=== PATIENT | female | born 1985 | race Caucasian/White ===

== ENCOUNTER → 2017-12-08 15:14 | Outpatient (CLI) | payer OTHER, SELFPAY ==
--- NOTE | 2017-12-08 | DI.US.S_ITS ---
PROCEDURE: US OB >= 14 WEEKS FETUS INDICATIONS: 20 WEEK ANATOMICAL SURVEY OUTSIDE/PRIOR DATING DATA: Last menstrual period (LMP): 07/16/17. LMP-based estimated date of delivery (SWAPNA): 04/22/18. First dating scan (date and location): 09/11/17. Estimated date of delivery (SWAPNA) from first dating scan: 04/19/18. TECHNIQUE: Real-time scanning was performed of the fetus, with image documentation and biometric measurements. Endovaginal scanning: No COMPARISON: formerly [facility], OB COMPLETE LESS THAN 14 WKS, 09/11/2017, 13:10. FINDINGS: General: A single living intrauterine gestation is present. Presentation: Vertex. Placenta: Placental position is anterior, without previa. Amniotic fluid index: 14.8 cm, normal range is 5-24 cm. heart rate: 123 beats per minute. Maternal cervical canal: 3.8 cm long. biometrics: Biparietal diameter: 21 weeks Head circumference: 21 weeks Abdominal circumference: 21 weeks 3 days Femur length: 21 weeks 3 days Estimated gestational age from initial scan: 21 weeks 1 day Composite gestational age from present scan: 21 weeks 2 days Estimated weight and percentile: 421 g; the 59th percentile Measurement variability for biometric dating: +/- 7 days from 14 weeks to 15 weeks 6 days gestation, +/- 10 days from 16 weeks to 21 weeks 6 days gestation, +/- 2 weeks from 22 weeks to 27 weeks 6 days gestation, +/- 3 weeks for 28 weeks gestation or later. weight reference: 4500 g or EFW >90/95% is considered macrosomia or large for gestational age. EFW <10% is small for gestational age. EFW 5% or less is considered intra-uterine growth restriction. Anatomic survey: Neuro: Ventricles are non-dilated at less than 10 mm. Cisterna magna is normal at 3-11 mm. Cerebellum is normal in size and morphology. Nuchal skin fold: Normal at less than 6 mm between 14-21 weeks gestational age. Face: Nose and lips, facial profile are normal. Spine: No evidence for spina bifida. Heart: 4-chambered heart is present, with normal ventricular outflow tracts. Diaphragm: Diaphragm is intact. Stomach: Left-sided stomach is present. Kidneys: No hydronephrosis. Normal is less than 5 mm in 2nd trimester, less than 7 mm in 3rd trimester. Cord: 3-vessel cord has orthotopic insertion. Bladder: Normal in size. Extremities: All 4 extremities identified. IMPRESSION: 1. Single living IUP redemonstrated and interval growth is normal. 2. Normal anatomic survey. Dictated by: Tate Cool [facility] Interpreted: Manas Chaudhry MD on 12/09/2017 at 9:01 Approved by: Manas Chaudhry M.D. on 12/09/2017 at 14:18
== END ==
PROVIDERS: PCP Midwife; Visit Provider Midwife
DX: Z34.92 Encounter for supervision of normal pregnancy, unspecified, second trimester (principal); Z3A.21 21 weeks gestation of pregnancy
CPT/HCPCS: 76811

== ENCOUNTER → 2019-09-12 15:04 | Outpatient (CLI) | payer OTHER, SELFPAY ==
--- NOTE | 2019-09-12 | DI.US.S_ITS ---
PROCEDURE: US OB <= 14 WEEKS FETUS INDICATIONS: SIZE AND DATING OUTSIDE/PRIOR DATING DATA: First dating scan (date and location): 09/12/19. Estimated date of delivery (SWAPNA) from first dating scan: 05/02/20. TECHNIQUE: Real-time scanning was performed of the fetus and maternal pelvic organs, with image documentation. Endovaginal scanning was also performed to better visualize the fetus and maternal ovaries. COMPARISON: None. FINDINGS: Embryo: [place]-rump length measures 8 mm corresponding to 6 weeks 5 days. Heart rate measures 136 beats per minute. Measurement variability in dating: +/- 4 weeks by LMP, +/- 7 days by mean sac diameter (use before 6 weeks gestation if crown-rump length not able to be measured), +/- 5 days by crown-rump length (up to 8 weeks 6 days gestation), +/- 7 days by crown-rump length (up to 13 weeks 6 days gestation). Maternal organs: Ovaries within normal limits. Limited images through the kidneys demonstrate no hydronephrosis. Lower uterine segment [place] contraction noted. IMPRESSION: 6 week 5 day del real intrauterine gestation. Dictated by: Tate Cool [facility] Interpreted: Tray Armenta MD on 09/12/2019 at 16:57 Approved by: Tray Armenta M.D. on 09/15/2019 at 16:46
== END ==
PROVIDERS: PCP Midwife; Referring Provider Midwife; Visit Provider Midwife
DX: Z36.87 Encounter for antenatal screening for uncertain dates (principal); Z3A.01 Less than 8 weeks gestation of pregnancy
CPT/HCPCS: 76801

== ENCOUNTER → 2019-12-14 15:46 | Outpatient (CLI) | payer OTHER, SELFPAY ==
--- NOTE | 2019-12-14 | DI.US.S_ITS ---
PROCEDURE: US OB >= 14 WEEKS FETUS INDICATIONS: ANATOMICAL SURVEY OUTSIDE/PRIOR DATING DATA: Last menstrual period (LMP): Not available. LMP-based estimated date of delivery (SWAPNA): Not available. First dating scan (date and location): 09/12/19. Estimated date of delivery (SWAPNA) from first dating scan: 05/02/20. TECHNIQUE: Real-time scanning was performed of the fetus, with image documentation and biometric measurements. Endovaginal scanning: No needed for this examination. COMPARISON: [facility], OB >= 14 WEEKS FETUS, 12/08/2017, 15:40. FINDINGS: General: A single living intrauterine gestation is present. Presentation: Vertex. Placenta: Placental position is anterior, without previa. Amniotic fluid index: 11.6 cm, normal range is 5-24 cm. heart rate: 152 beats per minute. Maternal cervical canal: 5.9 cm long. Normal lower limit is 2.5 cm. biometrics: Biparietal diameter: 4.7 cm, 20 weeks 1 day Head circumference: 17.6 cm, 20 weeks 0 days Abdominal circumference: 15.3 cm, 20 weeks 4 days Femur length: 3.2 cm, 20 weeks 0 days Estimated gestational age from initial scan: 20 weeks 0 days Composite gestational age from present scan: 20 weeks 1 day Estimated weight and percentile: 343 g, 61st percentile Measurement variability for biometric dating: +/- 7 days from 14 weeks to 15 weeks 6 days gestation, +/- 10 days from 16 weeks to 21 weeks 6 days gestation, +/- 2 weeks from 22 weeks to 27 weeks 6 days gestation, +/- 3 weeks for 28 weeks gestation or later. weight reference: 4500 g or EFW >90/95% is considered macrosomia or large for gestational age. EFW <10% is small for gestational age. EFW 5% or less is considered intra-uterine growth restriction. Anatomic survey: Neuro: Ventricles are non-dilated at less than 10 mm. Cisterna magna is normal at 3-11 mm. Cerebellum is normal in size and morphology. Nuchal skin fold: Normal at less than 6 mm between 14-21 weeks gestational age. Face: Nose and lips, facial profile are normal. Spine: No evidence for spina bifida. Heart: 4-chambered heart is present, with normal ventricular outflow tracts. Diaphragm: Diaphragm is intact. Stomach: Left-sided stomach is present. Kidneys: No hydronephrosis. Normal is less than 5 mm in 2nd trimester, less than 7 mm in 3rd trimester. Cord: 3-vessel cord has orthotopic insertion. Bladder: Normal in size. Extremities: All 4 extremities identified. IMPRESSION: Single living intrauterine gestation with appropriate interval growth and no anomaly. Vertex presentation, normal amniotic fluid volume, anterior placenta. Dictated by: Manas Chaudhry M.D. on 12/14/2019 at 16:39 Approved by: Manas Chaudhry M.D. on 12/14/2019 at 16:43
== END ==
PROVIDERS: PCP Midwife; Referring Provider Midwife; Visit Provider Midwife
DX: Z36.89 Encounter for other specified antenatal screening (principal); Z3A.20 20 weeks gestation of pregnancy
CPT/HCPCS: 76811

== ENCOUNTER → 2023-10-05 09:15 | Outpatient (CLI) | payer OTHER, SELFPAY ==
[2023-10-05 10:42] LABS: Hemoglobin 12.3 g/dL (12.0-16.0); Mean Corpuscular HGB Conc 33.1 % (30-36); Mean Corpuscular Hemoglobin 29.1 PG (26-34); Mean Corpuscular Volume 87.8 fL (80-100); Platelet Count 233 X10^3/uL (150-400); Red Blood Cell Count 4.21 X10^6/uL (4.0-5.2); Red Cell Distribution Width 13.4 % (11.6-14.8); White Blood Cell Count 5.5 X10^3/uL (4.5-11.0)
[2023-10-05 11:08] LABS: Alanine Aminotransferase 13 IU/L (<35); Albumin 4.3 g/dL (3.5-5.0); Albumin Globulin Ratio 1.5 (1.0-2.8); Alkaline Phosphatase 88 U/L (38-126); Aspartate Aminotransferase 20 IU/L (14-36); BUN Creatinine Ratio 13.6 (6-22); Bilirubin Total 0.4 mg/dL (0.2-1.3); Blood Urea Nitrogen 11 mg/dL (7-17); Calcium 9.5 mg/dL (8.4-10.2); Carbon Dioxide 30 mmol/L (22-32); Chloride 105 mmol/L (98-107); Cholesterol 142 mg/dL (140-199); Estimated Glomerular Filt Rate > 60 mL/min (>60); Globulin 2.9 g/dL (1.7-4.1); Glucose 82 mg/dL (70-100); HDL Cholesterol 51 mg/dL (40-60); HEMOLYSIS < 15 (0-50); LDL Cholesterol Calculated 75 mg/dL (<100); Potassium 4.2 mmol/L (3.4-5.1); Sodium 142 mmol/L (137-145); Total Protein 7.2 g/dL (6.3-8.2); Triglycerides 78 mg/dL (35-150)
[2023-10-05 11:17] LABS: Follicle Stimulating Hormone 3.61 mIU/mL
[2023-10-06 05:27] LABS: HSV 2 IGG AB 4.36 index (0.00-0.90)
[2023-10-09 05:32] LABS: Free T4, Direct Thyroxine 0.95 ng/dL (0.78-2.19)
[2023-10-09 05:46] LABS: Thyroid Stimulating Hormone 2.48 uIU/mL (0.47-4.68)
== END ==
LOC: LAB 09:16
PROVIDERS: PCP Registered Nurse Diabetes Educator; Referring Provider Registered Nurse Diabetes Educator; Visit Provider Registered Nurse Diabetes Educator
DX: R53.83 Other fatigue (principal); R68.82 Decreased libido
CPT/HCPCS: 36415; 80053; 80061; 83001; 84439; 84443; 85027; 86695; 86696

== ENCOUNTER → 2024-07-13 10:56 | Outpatient (CLI) | payer OTHER, SELFPAY ==
[2024-07-13 12:00] LABS: Add Manual Diff / Slide Review NO; Basophils Absolute Auto 0 /uL (0-100); Basophils Percent Auto 0.7 % (0-2); Eosinophils Absolute Auto 100 /uL (0-450); Eosinophils Percent Auto 1.8 % (2-4); Hematocrit 37.7 % (36-46); Hemoglobin 12.4 g/dL (12.0-16.0); Lymphocytes Absolute Auto 1900 /uL (1100-4500); Mean Corpuscular HGB Conc 32.9 % (30-36); Mean Corpuscular Volume 85.3 fL (80-100); Monocytes Absolute Auto 300 /uL (0-900); Monocytes Percent Auto 5.8 % (3-14); Neutrophils Absolute Auto 2200 /uL (1500-7000); Neutrophils Percent Auto 48.7 % (50-75); Platelet Count 262 X10^3/uL (150-400); Red Blood Cell Count 4.42 X10^6/uL (4.0-5.2); Red Cell Distribution Width 13.5 % (11.6-14.8); White Blood Cell Count 4.4 X10^3/uL (4.5-11.0)
[2024-07-13 12:17] LABS: HEMOLYSIS < 15 (0-50); Iron 137 ug/dL (37-170)
[2024-07-13 12:20] LABS: Alanine Aminotransferase 15 IU/L (<35); Albumin 4.8 g/dL (3.5-5.0); Albumin Globulin Ratio 1.5 (1.0-2.8); Alkaline Phosphatase 73 U/L (38-126); Aspartate Aminotransferase 26 IU/L (14-36); BUN Creatinine Ratio 16.4 (6-22); Bilirubin Total 0.7 mg/dL (0.2-1.3); Blood Urea Nitrogen 12 mg/dL (7-17); Calcium 9.2 mg/dL (8.4-10.2); Carbon Dioxide 27 mmol/L (22-32); Chloride 105 mmol/L (98-107); Estimated Glomerular Filt Rate > 60 mL/min (>60); Globulin 3.3 g/dL (1.7-4.1); Glucose 79 mg/dL (70-100); HEMOLYSIS < 15 (0-50); Potassium 4.5 mmol/L (3.4-5.1); Sodium 140 mmol/L (137-145); Total Protein 8.1 g/dL (6.3-8.2)
[2024-07-13 12:31] LABS: Percent Iron Saturation 50 % (15-50); Total Iron Binding Capacity 273 ug/dL (265-497); Transferrin 240 mg/dL (206-381)
[2024-07-13 12:49] LABS: TSH w/ Reflex to FT4 2.45 uIU/mL (0.47-4.68)
[2024-07-13 13:08] LABS: Vitamin B12 > 1000 pg/mL (239-931)
== END ==
LOC: LAB 10:57
PROVIDERS: Physician Assistant; PCP Registered Nurse Diabetes Educator; Referring Provider Registered Nurse Diabetes Educator; Visit Provider Registered Nurse Diabetes Educator
DX: R53.83 Other fatigue (principal); Z86.16 Personal history of COVID-19
CPT/HCPCS: 36415; 80053; 82607; 83540; 83550; 84443; 85025

== ENCOUNTER → 2025-03-20 15:04 | Outpatient (CLI) | payer OTHER, SELFPAY ==
[2025-03-20 15:30] LABS: Add Manual Diff / Slide Review NO; Hematocrit 36.9 % (36-46); Hemoglobin 12.4 g/dL (12.0-16.0); Lymphocytes Absolute Auto 2200 /uL (1100-4500); Mean Corpuscular HGB Conc 33.5 % (30-36); Mean Corpuscular Hemoglobin 27.7 PG (26-34); Mean Corpuscular Volume 82.6 fL (80-100); Platelet Count 290 X10^3/uL (150-400)
[2025-03-20 15:55] LABS: Alanine Aminotransferase 11 IU/L (<35); Albumin 4.7 g/dL (3.5-5.0); Albumin Globulin Ratio 1.5 (1.0-2.8); Alkaline Phosphatase 81 U/L (38-126); Blood Urea Nitrogen 11 mg/dL (7-17); Calcium 9.6 mg/dL (8.4-10.2); Carbon Dioxide 27 mmol/L (22-32); Chloride 100 mmol/L (98-107); Estimated Glomerular Filt Rate > 60 mL/min (>60); Globulin 3.2 g/dL (1.7-4.1); Glucose 93 mg/dL (70-99); HEMOLYSIS < 15 (0-50); Potassium 3.7 mmol/L (3.4-5.1); Sodium 139 mmol/L (137-145); Total Protein 7.9 g/dL (6.3-8.2)
[2025-03-24 10:08] LABS: ANA Screen, IFA Positive (.)
== END ==
PROVIDERS: PCP Registered Nurse Diabetes Educator; Referring Provider Registered Nurse Diabetes Educator; Visit Provider Registered Nurse Diabetes Educator
DX: I00 Rheumatic fever without heart involvement (principal); M25.50 Pain in unspecified joint; R21 Rash and other nonspecific skin eruption; J02.0 Streptococcal pharyngitis; M19.90 Unspecified osteoarthritis, unspecified site
CPT/HCPCS: 36415; 80053; 85025; 85651; 86038; 86060; 86140; 86200; 86430; 86747